=== PATIENT | female | born 1950 | race African-American/Black ===

== ENCOUNTER 2018-05-31 10:00 | Inpatient (IN) | payer MEDICARE, MEDICAID ==
[~2018-05-31] VITALS: Ht 177.8 cm; Wt 162.8 kg
[2018-05-31 10:30] VITALS: BP 139/82
[2018-05-31] MEDS ORDERED: Morphine Sulfate 4mg/ml Inj (IV USE ONLY) IVP ONE ×2 (10:30→12:15)
[2018-05-31] MEDS ORDERED: NAMENDA10 MG ORAL (10:40)
[2018-05-31] MEDS ORDERED: PRILOSEC OTC20 MG ORAL (10:40)
[2018-05-31] MEDS ORDERED: SEROQUEL100 MG ORAL (10:42)
[2018-05-31] MEDS ORDERED: UNOBMED (10:42)
[2018-05-31] MEDS ORDERED: ATORVASTATIN CA10 MG ORAL (10:42)
[2018-05-31] MEDS ORDERED: LOPRESSOR HCT1 EAC3 ORAL (10:42)
--- NOTE | 2018-05-31 10:42 | Emergency Room Report ---
History of Present Illness General Chief Complaint: Pain Source: Patient, EMS Present Illness HPI 68-year-old female with history of hypertension, diabetes, frequent UTIs currently on antibiotics, Keflex, reports that she is having dysuria and 1 week history of bilateral lower extremity redness, constant, throbbing, severe pain and associated bilateral lower extremity swelling. She reports she ambulance with a walker but recently has been having increasing difficulty ambulating. Pain, fevers, vomiting, pain complaints anywhere else, shortness of breath, syncope, hemoptysis, cough. Allergies: Coded Allergies: No Known Allergies (Unverified , 05/31/18) Patient History Past Medical History: see triage record Reviewed Nursing Documentation: PMH: Agreed; PSxH: Agreed Nursing Documentation-PMH Past Medical History: No History, Except For Hx Hypertension: Yes Hx Diabetes: Yes Review of Systems All Other Systems: negative except mentioned in HPI Physical Exam Vital Signs Date Time Temp Pulse Resp B/P (MAP) Pulse Ox O2 Delivery O2 Flow Rate FiO2 05/31/18 09:55 97.7 87 18 139/82 95 Room Air 97.7 Sp02 EP Interpretation: reviewed, normal General Appearance: no apparent distress, alert, non-toxic Head: normocephalic Eyes: bilateral eye normal inspection, bilateral eye PERRL, bilateral eye EOMI ENT: normal ENT inspection, hearing grossly normal, normal pharynx, no angioedema, normal voice, moist mucus membranes Neck: normal inspection, full range of motion, supple, supple/symm/no masses Respiratory: chest non-tender, lungs clear, normal breath sounds, chest symmetrical, palpation of chest normal Cardiovascular #1: normal peripheral pulses, regular rate, rhythm, edema Cardiovascular #2: 2+ radial (R), 2+ radial (L) Gastrointestinal: normal inspection, non tender, soft, no mass, no guarding, no rebound Rectal: deferred Genitourinary: normal inspection, no CVA tenderness Musculoskeletal: back normal, gait/station normal, normal range of motion, non- tender, no calf tenderness, swelling Neurologic: alert, responsive, [employer] department supervisor III-XII nml as tested, motor strength/tone normal, sensory intact, speech normal Psychiatric: judgement/insight normal, memory normal, mood/affect normal, no suicidal/homicidal ideation Skin: normal color, no rash, warm/dry, normal turgor, other - + erythema, warmth, tenderness bilateral LE distal tibias circumferentially to level of knees Lymphatic: no adenopathy Medical Decision Making Diagnostic Impression: Primary Impression: Cellulitis Additional Impressions: Edema Hyperglycemia UTI (urinary tract infection) ER Course Elderly diabetic female with one-week history of signs and symptoms consistent with diagnosis of cellulitis, given IV vancomycin, Lasix, will have urinalysis checked from catheterized specimen as she reports having multiple UTIs since the last 2 months and is currently on Keflex, still having dysuria.she will need admission for her cellulitis and edema that has contributed to her difficulty ambulating, and will need further diuresis and abx. She is hyperglycemic with a glucose of 444, no evidence of DKA, hyperglycemia in the setting of infection and insulin dependence, given IV insulin. She carries no diagnosis of CHF, liver disease or kidney disease, so will need further evaluation for her new onset edema as well. Given rocephin for UTI found on UA. EKG Diagnostic Results EKG Time: 10:53 EP Interpretation: No ST-T segment changes, no T-wave inversions Rate: normal Rhythm: NSR ST Segments: no acute changes Rhythm Strip Diag. Results Rhythm Strip Time: 11:05 EP Interpretation: yes Rate: 94 Rhythm: NSR, no PVC's, no ectopy Chest X-Ray Diagnostic Results Chest X-Ray Diagnostic Results : Chest X-Ray Ordered: Yes # of Views/Limited/Complete: 1 View Indication: Other EP Interpretation: Yes Interpretation: no consolidation, no effusion, no pneumothorax, no acute cardiopulmonary disease Impression: No acute disease Electronically Signed by: Audra Roman MD Last Vital Signs Date Time Temp Pulse Resp B/P (MAP) Pulse Ox O2 Delivery O2 Flow Rate FiO2 05/31/18 10:30 97.7 18 139/82 95 Room Air 97.7 05/31/18 09:55 87 Disposition: ADMITTED INPATIENT Referrals: NOT CHOSEN LESLI/,REFERRING (PCP) AUDRA ROMAN M.D May 31, 2018 10:42
[2018-05-31 10:43] LABS: BASOPHILS % (AUTO) 0.6 % (0.0-2.0); EOSINOPHILS % (AUTO) 1.8 % (0.0-3.0); HEMATOCRIT 36.9 % (37.0-47.0); LYMPHOCYTES % (AUTO) 20.9 % (20.0-45.0); MEAN CORPUSCULAR VOLUME 84 FL (80-99); MONOCYTES % (AUTO) 5.1 % (1.0-10.0); NEUTROPHILS % (AUTO) 71.6 % (45.0-75.0); PLATELET COUNT 203 K/UL (150-450); RED BLOOD COUNT 4.37 M/UL (4.20-5.40); RED CELL DISTRIBUTION WIDTH 13.6 % (11.6-14.8); WHITE BLOOD COUNT 6.9 K/UL (4.8-10.8)
[2018-05-31 10:51] LABS: ANION GAP 8 mmol/L (5-15); BLOOD UREA NITROGEN 17 mg/dL (7-18); CALCIUM 9.1 MG/DL (8.5-10.1); CARBON DIOXIDE 31 MMOL/L (21-32); CHLORIDE 98 MMOL/L (98-107); CREATININE 1.2 MG/DL (0.55-1.30); POTASSIUM 3.7 MMOL/L (3.5-5.1); SODIUM 137 MMOL/L (136-145)
[2018-05-31 11:04] LABS: ALANINE AMINOTRANSFERASE 17 U/L (12-78); ALBUMIN 3.1 G/DL (3.4-5.0); ALBUMIN/GLOBULIN RATIO 0.7 (1.0-2.7); ALKALINE PHOSPHATASE 160 U/L (46-116); ASPARTATE AMINO TRANSFERASE 14 U/L (15-37); BILIRUBIN,TOTAL 0.5 MG/DL (0.2-1.0)
[2018-05-31 11:07] LABS: APPEARANCE,URINE CLOUDY; BILIRUBIN, URINE NEGATIVE (NEGATIVE); COLOR,URINE PALE YELLOW; GLUCOSE, URINE (UA) 4+ (NEGATIVE); KETONES,URINE NEGATIVE (NEGATIVE); LEUKOCYTE ESTERASE ,URINE 3+ (NEGATIVE); NITRITE,URINE POSITIVE (NEGATIVE); PH,URINE 6 (4.5-8.0); PROTEIN,URINE 3+ (NEGATIVE); UROBILINOGEN,URINE NORMAL MG/DL (0.0-1.0)
[2018-05-31] MEDS ORDERED: Insulin Human Regular 100units/ml 3ml IV ONE (11:15)
[2018-05-31] MEDS ORDERED: Cyclobenzaprine 10mg Tab ORAL ONE (12:15)
[2018-05-31] MEDS ORDERED: cefTRIAXone 1 GM in NS 55 ML IVPB ONE (12:15)
--- NOTE | 2018-05-31 12:15 | Diagnostic Imaging Report ---
EXAM: XR Chest, 1 View CLINICAL HISTORY: HTN TECHNIQUE: Frontal view of the chest. COMPARISON: No relevant prior studies available. FINDINGS: Lungs: Mild pulmonary vascular congestion. The lungs are otherwise clear without focal consolidation. Pleural space: Unremarkable. No pneumothorax. Heart: Heart appears enlarged, however the cardiac silhouette is magnified by AP film technique. Mediastinum: Unremarkable. Bones/joints: Mild degenerative changes throughout the visualized spine. IMPRESSION: 1. Mild pulmonary vascular congestion. 2. Heart appears enlarged, however the cardiac silhouette is magnified by AP film technique.
[2018-05-31] MEDS ORDERED: Milk of Magnesia 30ml Ud ORAL PRN (14:00)
--- NOTE | 2018-05-31 14:04 | History & Physical ---
History and Physical History & Physicial HP dictated #[id number] Beau Meneses MD May 31, 2018 14:04
[2018-05-31] MEDS ORDERED: cefTRIAXone 1 GM in D5W 55 ML IVPB SCH (15:00)
--- NOTE | 2018-05-31 15:30 | History and Physical Report ---
DATE OF ADMISSION: 05/31/2018 CHIEF COMPLAINT: Edema of the legs and pain. HISTORY OF PRESENT ILLNESS: This is a 68-year-old female, who just moved to a new place and for the past week she has been getting more and more peripheral edema. She stated that her legs have become painful. She was seen in the emergency room and was diagnosed with cellulitis of the lower extremities. In addition, she has had frequent UTIs before. She is diabetic. PAST MEDICAL HISTORY: The patient has a history of , history of hypertension, and diabetes for many years. ALLERGIES: No known drug allergies. SOCIAL HISTORY: No history of smoking or alcohol abuse. REVIEW OF SYSTEMS: Noncontributory except above. PHYSICAL EXAMINATION: GENERAL: The patient is a 68-year-old female, in no acute distress. VITAL SIGNS: Blood pressure 139/82, pulse 87, and temperature 97.7. HEENT: [place] conjunctivae. Anicteric sclerae. NECK: Supple. LUNGS: Clear to auscultation. HEART: S1, S2 without murmurs or rubs. ABDOMEN: Soft, nontender. EXTREMITIES: Bilateral pedal edema with redness of both lower extremities. LABORATORY FINDINGS: The CBC shows a WBC of 6900, hematocrit is 36.9, hemoglobin 12, and platelets 203,000. The chemistry panel shows a serum sodium of 137, potassium 3.7, chloride 98, CO2 31, BUN is 17, creatinine 1.2, glucose 444, and calcium is 9.1. Albumin is 3.1. UA shows 3+ protein, with too numerous to count rbc's and too numerous to count wbc's per high-power field and moderate bacteria. ASSESSMENT: This is a 68-year-old female, was admitted with UTI and lower extremity cellulitis. She has history of diabetes and we put a Shane and she had a lot of urine residuals in the bladder. So, she very likely has a neurogenic bladder from diabetes also triggering her frequent UTIs. Her blood sugar was also not controlled. PLAN: The patient will be on IV antibiotics both for UTI as well as cellulitis. ID consultation will be obtained. The patient will be diuresed with Lasix for lower extremity swelling. The patient will be on Urecholine for neurogenic bladder, also endocrine consult for her diabetes, and she will be on sliding scale insulin at this time. Thank you very much. Beau Meneses M.D. DR: JOSE MARTIN JOB#: [id number] CC:
[2018-05-31] MEDS ORDERED: Vancomycin 1500mg IVPB SCH (16:00)
[2018-05-31] MEDS: NovoLOG Insulin Flexpen SUBQ SCH ×2 (16:26→20:39)
[2018-05-31] MEDS: Heparin 5000 units/ml inj SUBQ SCH ×2 (16:28→20:38)
[2018-05-31] MEDS: Memantine 10mg tab ORAL SCH (16:30)
[2018-05-31] MEDS: Bethanechol 10mg Tab ORAL SCH (18:18)
[2018-05-31 20:00] VITALS: BP 149/75
[2018-05-31 21:00] VITALS: BP 149/75
[2018-06-01] VITALS (7 sets, daily range): BP systolic 131–151; BP diastolic 72–85
[2018-06-01] MEDS: Vancomycin 1250mg/D5W 250ml IVPB SCH ×2 (04:00→17:16)
[2018-06-01] MEDS: Morphine Sulfate 4mg/ml Inj (IV USE ONLY) IVP PRN ×2 (04:01→09:22)
[2018-06-01] MEDS: NovoLOG Insulin Flexpen SUBQ SCH ×4 (05:56→20:24)
[2018-06-01 08:06] LABS: ANION GAP 8 mmol/L (5-15); BLOOD UREA NITROGEN 16 mg/dL (7-18); CALCIUM 8.6 MG/DL (8.5-10.1); CARBON DIOXIDE 33 MMOL/L (21-32); CHLORIDE 99 MMOL/L (98-107); POTASSIUM 2.9 MMOL/L (3.5-5.1); SODIUM 140 MMOL/L (136-145)
[2018-06-01] MEDS: cefTRIAXone 1 GM in D5W 55 ML IVPB SCH (08:49)
[2018-06-01] MEDS: Bethanechol 10mg Tab ORAL SCH ×3 (08:49→17:15)
[2018-06-01] MEDS: Memantine 10mg tab ORAL SCH (08:49)
[2018-06-01] MEDS: Heparin 5000 units/ml inj SUBQ SCH ×2 (08:50→20:23)
--- NOTE | 2018-06-01 10:56 | General Progress Note ---
Assessment/Plan Problem List: (1) Cellulitis ICD Codes: L03.90 - Cellulitis, unspecified SNOMED: 839605225 (2) UTI (urinary tract infection) ICD Codes: N39.0 - Urinary tract infection, site not specified SNOMED: 69051206 (3) Edema ICD Codes: R60.9 - Edema, unspecified SNOMED: 708750935, 453939113 (4) Hyperglycemia ICD Codes: R73.9 - Hyperglycemia, unspecified SNOMED: 50979945 (5) Hypokalemia ICD Codes: E87.6 - Hypokalemia SNOMED: 60407641 Assessment/Plan Replete K abxs diuretics follow BMP Subjective Allergies: Coded Allergies: No Known Allergies (Unverified , 05/31/18) Subjective feels better Objective Last 24 Hour Vital Signs Date Time Temp Pulse Resp B/P (MAP) Pulse Ox O2 Delivery O2 Flow Rate FiO2 06/01/18 08:00 98.2 97 20 147/85 (105) 95 98.2 06/01/18 04:31 98.0 06/01/18 04:01 98.0 06/01/18 04:00 98.1 98 21 151/79 (103) 94 98.1 06/01/18 00:00 98.0 97 20 146/72 (96) 94 98.0 05/31/18 21:20 Room Air 05/31/18 21:00 98.2 103 20 149/75 (99) 95 98.2 05/31/18 20:00 98.2 103 20 149/75 (99) 95 98.2 05/31/18 16:42 Room Air 05/31/18 15:01 98.0 16 137/82 97 Room Air 05/31/18 13:40 97.7 05/31/18 13:40 97.7 05/31/18 13:39 97.7 05/31/18 12:25 97.7 05/31/18 12:25 97.7 Intake and Output 05/31/18 06/01/18 19:00 07:00 Intake Total 0 ml 250.000 ml Output Total 1350 ml 1700 ml Balance -1350 ml -1450.000 ml Intake Oral 0 ml IV Total 250.000 ml Output Urine Total 1350 ml 1700 ml Laboratory Tests 05/31/18 12:35: Lactic Acid Level 3.50H 06/01/18 05:10: Sodium Level 140, Potassium Level 2.9L, Chloride Level 99, Carbon Dioxide Level 33H, Anion Gap 8, Blood Urea Nitrogen 16, Creatinine 1.0, Estimat Glomerular Filtration Rate > 60, Glucose Level 341#H, Hemoglobin A1c 9.4H, Calcium Level 8.6, Thyroid Stimulating Hormone (TSH) 1.487 Height (Feet): 5 Height (Inches): 10.00 Weight (Pounds): 359 Cardiovascular: normal rate Respiratory/Chest: lungs clear Edema: 4+ Generalized Beau Meneses MD Jun 01, 2018 10:56
[2018-06-01] MEDS: Zolpidem 5mg tab ORAL PRN (20:22)
--- NOTE | 2018-06-01 21:00 | Consultation ---
DATE OF CONSULTATION: 06/01/2018 INFECTIOUS DISEASE CONSULTATION CONSULTING PHYSICIAN: Ti Meneses M.D. PRIMARY ATTENDING PHYSICIAN: Beau Meneses M.D. REASON FOR CONSULT: UTI and lower extremity cellulitis. HISTORY OF PRESENT ILLNESS: This is a 68-year-old female admitted yesterday complaining of swelling and pain in the lower extremities. The patient states that she moved to someplace that bedroom is upstairs, it is difficulty for her to go there. So, she stays mostly in sitting position in lower level, developed swelling of the legs and pain in the legs. The patient also complains of dysuria. She had recurrent urinary infections and getting antibiotics on and off since August of last year. Before admission, she was on Keflex at home. ALLERGIES: No known drug allergy. MEDICATIONS: Ceftriaxone, vancomycin, Tylenol, atorvastatin, memantine, milk of magnesia, morphine, potassium chloride, Seroquel. PAST MEDICAL HISTORY: Diabetes mellitus for many years in the past 10 years was on insulin; hypertension; and morbid obesity. REVIEW OF SYSTEMS: No fever. No chills. No nausea. No vomiting. No diarrhea. No coughing. No chest pain. No change in the lesion. She has dysuria. After admission, she had Shane catheter. Swelling of the legs. PHYSICAL EXAMINATION: VITAL SIGNS: Temperature 98.2, pulse 97, and blood pressure 147/85. GENERAL APPEARANCE: No acute distress, morbidly obese. BMI is 61.5. HEAD AND NECK: [place] conjunctivae. HEART: Normal rate. LUNGS: Clear. ABDOMEN: Soft and nontender. EXTREMITIES: She has lower extremity edema. SKIN: She has some skin ulceration in female area. LABORATORY AND IMAGING DATA: UA is positive for nitrite, WBC too numerous to count, RBC too numerous to count. Sodium 140, potassium 2.9, chloride 99, bicarbonate 33, BUN 16, creatinine 1, and glucose 341. Lactic acid is 3.5. Hemoglobin A1c 9.4. Chest x-ray showed some congestion. Heart appeared enlarged. IMPRESSION: 1. Pyuria and urinary tract infection. The patient also has dysuria and have to press down for urination. 2. Bilateral lower extremity pain and swelling. May have cellulitis especially in perineal area. 3. Diabetes mellitus with hyperglycemia. 4. Lactic acidosis. 5. Morbid obesity. 6. Hypertension. RECOMMENDATION: We will continue with Rocephin and vancomycin. We will follow up the cultures. At the end of my exam, I thank Dr. Beau Meneses for involving me in the care of this patient. Ti Meneses M.D. DR: NYDIA JOB#: [id number] CC:
[2018-06-02] VITALS: BP 123/57
[2018-06-02 04:00] VITALS: BP 154/78
[2018-06-02 05:00] LABS: ANION GAP 6 mmol/L (5-15); BLOOD UREA NITROGEN 11 mg/dL (7-18); CALCIUM 8.2 MG/DL (8.5-10.1); CARBON DIOXIDE 34 MMOL/L (21-32); CHLORIDE 100 MMOL/L (98-107); CREATININE 0.9 MG/DL (0.55-1.30); POTASSIUM 3.4 MMOL/L (3.5-5.1); SODIUM 139 MMOL/L (136-145)
[2018-06-02] MEDS: Vancomycin 1.5gm/D5W 250ml 250 ML IVPB SCH ×2 (05:43→18:07)
[2018-06-02] MEDS: NovoLOG Insulin Flexpen SUBQ SCH ×4 (05:45→21:24)
[2018-06-02 08:00] VITALS: BP 144/79
[2018-06-02] MEDS: Bethanechol 10mg Tab ORAL SCH ×3 (08:34→18:00)
[2018-06-02] MEDS: Memantine 10mg tab ORAL SCH (08:35)
[2018-06-02] MEDS: cefTRIAXone 1 GM in D5W 55 ML IVPB SCH (08:35)
[2018-06-02] MEDS: Morphine Sulfate 4mg/ml Inj (IV USE ONLY) IVP PRN ×2 (08:35→22:59)
[2018-06-02] MEDS: Heparin 5000 units/ml inj SUBQ SCH ×2 (09:00→21:14)
--- NOTE | 2018-06-02 10:37 | Infectious Diseases Prog Note ---
Assessment/Plan Assessment/Plan A; E. coli UTI Bilateral leg edema Uncontrolled DM Tachycardia Morbid obesity P: Continue Rocephin & Vancomycin Will f/u cultures Patient was on Lopressor at home Case was D/W RN Subjective ROS Limited/Unobtainable: No Constitutional: Reports: no symptoms, other - feels better HEENT: Reports: no symptoms Respiratory: Reports: no symptoms Cardiovascular: Reports: no symptoms Gastrointestinal/Abdominal: Reports: no symptoms Genitourinary: Reports: no symptoms Allergies: Coded Allergies: No Known Allergies (Unverified , 05/31/18) Objective Vital Signs Last 24 Hour Vital Signs Date Time Temp Pulse Resp B/P (MAP) Pulse Ox O2 Delivery O2 Flow Rate FiO2 06/02/18 08:00 98.1 109 20 144/79 (100) 94 98.1 06/02/18 04:00 97.9 104 20 154/78 (103) 95 97.9 06/02/18 00:00 98.1 105 20 123/57 (79) 100 98.1 06/01/18 21:12 Room Air 06/01/18 20:00 98.8 107 20 131/75 (93) 96 98.8 06/01/18 16:00 98.2 98 20 142/82 (102) 96 98.2 06/01/18 12:00 98.1 101 19 140/78 (98) 95 98.1 Height (Feet): 5 Height (Inches): 10.00 Weight (Pounds): 359 HEENT: mucous membranes moist Respiratory/Chest: lungs clear Cardiovascular: tachycardia Abdomen: soft, non tender Extremities: other - edema of legs Neurologic/Psychiatric: alert, oriented x 3, responsive Microbiology Date/Time Source Procedure Growth Status 05/31/18 10:50 Urine,Clean Catch Urine Culture - Preliminary Escherichia Coli Resulted Laboratory Tests Test 06/02/18 03:40 Sodium Level 139 MMOL/L (136-145) Potassium Level 3.4 MMOL/L (3.5-5.1) L Chloride Level 100 MMOL/L (98-107) Carbon Dioxide Level 34 MMOL/L (21-32) H Anion Gap 6 mmol/L (5-15) Blood Urea Nitrogen 11 mg/dL (7-18) Creatinine 0.9 MG/DL (0.55-1.30) Estimat Glomerular Filtration Rate > 60 mL/min (>60) Glucose Level 335 MG/DL (74-106) H Calcium Level 8.2 MG/DL (8.5-10.1) L Vancomycin Level Trough 11.4 ug/mL (5.0-12.0) Current Medications Medications (Trade) Dose Ordered Sig/Consuelo Route PRN Reason Start Time Stop Time Status Last Admin Dose Admin Acetaminophen (Tylenol) 650 mg Q4H PRN ORAL Mild Pain (Pain Scale 1-3) 05/31/18 14:00 06/30/18 13:59 Atorvastatin Calcium (Lipitor) 10 mg BEDTIME ORAL 05/31/18 21:00 06/30/18 20:59 06/01/18 20:22 Bethanechol Chloride (Urecholine) 10 mg THREE TIMES A DAY ORAL 05/31/18 18:00 06/30/18 17:59 06/02/18 08:34 Bisacodyl (Dulcolax) 10 mg HSPRN PRN RECTAL Constipation 05/31/18 14:00 06/30/18 13:59 Ceftriaxone Sodium 1 gm/ Dextrose 55 ml @ 110 mls/hr DAILY IVPB 06/01/18 09:00 06/08/18 08:59 06/02/18 08:35 Dextrose (Dextrose 50%) 25 ml STAT PRN IV Hypoglycemia 05/31/18 14:00 06/30/18 13:59 Dextrose (Dextrose 50%) 50 ml STAT PRN IV Hypoglycemia 05/31/18 14:00 06/30/18 13:59 Furosemide (Lasix) 20 mg EVERY 12 HOURS IV 05/31/18 15:00 06/30/18 14:59 06/02/18 08:35 Heparin Sodium (Porcine) (Heparin 5000 units/ml) 5,000 units EVERY 12 HOURS SUBQ 05/31/18 15:00 06/30/18 14:59 06/01/18 20:23 Insulin Aspart (NovoLOG) BEFORE MEALS AND HS SUBQ 05/31/18 16:30 06/30/18 16:29 06/02/18 05:45 Magnesium Hydroxide (Mom) 30 ml HSPRN PRN ORAL Constipation 05/31/18 14:00 06/30/18 13:59 Memantine (Namenda) 10 mg DAILY ORAL 05/31/18 15:00 06/30/18 14:59 06/02/18 08:35 Morphine Sulfate (Morphine Sulfate) 4 mg Q3H PRN IVP Severe Pain (Pain Scale 7-10) 05/31/18 14:00 06/07/18 13:59 06/02/18 08:35 Potassium Chloride (K-Dur) 40 meq TWICE A DAY ORAL 06/01/18 18:00 07/01/18 17:59 06/02/18 08:34 Quetiapine Fumarate (SEROquel) 150 mg DAILY ORAL 05/31/18 15:00 06/30/18 14:59 06/02/18 08:35 Vancomycin HCl (Vanco rx to dose) 1 ea DAILY PRN MISC Per rx protocol 05/31/18 14:00 06/30/18 13:59 Vancomycin HCl/ Dextrose 250 ml @ 125 mls/hr Q12H IVPB 06/02/18 06:00 06/07/18 05:59 06/02/18 05:43 Zolpidem Tartrate (Ambien) 5 mg HSPRN PRN ORAL Insomnia 05/31/18 14:00 06/07/18 13:59 06/01/18 20:22 Ti Meneses MD Jun 02, 2018 10:37
[2018-06-02 12:00] VITALS: BP 160/78
--- NOTE | 2018-06-02 12:39 | General Progress Note ---
Assessment/Plan Problem List: (1) Cellulitis ICD Codes: L03.90 - Cellulitis, unspecified SNOMED: 500448003 (2) UTI (urinary tract infection) ICD Codes: N39.0 - Urinary tract infection, site not specified SNOMED: 78692128 (3) Edema ICD Codes: R60.9 - Edema, unspecified SNOMED: 054900499, 948733998 (4) Hyperglycemia ICD Codes: R73.9 - Hyperglycemia, unspecified SNOMED: 10212278 (5) Hypokalemia ICD Codes: E87.6 - Hypokalemia SNOMED: 18498482 Assessment/Plan Replete K abxs diuretics follow BMP Subjective Allergies: Coded Allergies: No Known Allergies (Unverified , 05/31/18) Subjective feels better Objective Last 24 Hour Vital Signs Date Time Temp Pulse Resp B/P (MAP) Pulse Ox O2 Delivery O2 Flow Rate FiO2 06/02/18 12:00 98.1 104 20 160/78 (105) 95 98.1 06/02/18 08:00 98.1 109 20 144/79 (100) 94 98.1 06/02/18 04:00 97.9 104 20 154/78 (103) 95 97.9 06/02/18 00:00 98.1 105 20 123/57 (79) 100 98.1 06/01/18 21:12 Room Air 06/01/18 20:00 98.8 107 20 131/75 (93) 96 98.8 06/01/18 16:00 98.2 98 20 142/82 (102) 96 98.2 Intake and Output 06/01/18 06/02/18 19:00 07:00 Intake Total 360 ml 245 ml Output Total 550 ml 350 ml Balance -190 ml -105 ml Intake Oral 120 ml IV Total 360 ml 125 ml Output Urine Total 550 ml 350 ml Laboratory Tests 06/02/18 03:40: Sodium Level 139, Potassium Level 3.4L, Chloride Level 100, Carbon Dioxide Level 34H, Anion Gap 6, Blood Urea Nitrogen 11, Creatinine 0.9, Estimat Glomerular Filtration Rate > 60, Glucose Level 335H, Calcium Level 8.2L, Vancomycin Level Trough 11.4 Height (Feet): 5 Height (Inches): 10.00 Weight (Pounds): 359 Cardiovascular: normal rate Respiratory/Chest: lungs clear Edema: 4+ Generalized Beau Meneses MD Jun 02, 2018 12:39
[2018-06-02] MEDS: Irbesartan 150mg tablet ORAL SCH (12:43)
[2018-06-02 16:00] VITALS: BP 144/75
[2018-06-02] MEDS: Metoprolol Tartrate 50mg tab ORAL SCH (16:06)
[2018-06-02 20:00] VITALS: BP 138/77
[2018-06-02] MEDS: Levemir Flexpen SUBQ SCH ×2 (22:08→22:17)
[2018-06-02] MEDS: Zolpidem 5mg tab ORAL PRN (22:16)
[2018-06-03] MEDS: Vancomycin 1.5gm/D5W 250ml 250 ML IVPB SCH (06:38)
[2018-06-03] MEDS: NovoLOG Insulin Flexpen SUBQ SCH ×3 (06:39→16:50)
[2018-06-03 08:33] VITALS: BP 149/86
[2018-06-03] MEDS: Morphine Sulfate 4mg/ml Inj (IV USE ONLY) IVP PRN (08:37)
[2018-06-03] MEDS: Irbesartan 150mg tablet ORAL SCH (08:45)
[2018-06-03] MEDS: Bethanechol 10mg Tab ORAL SCH ×3 (08:45→18:00)
[2018-06-03] MEDS: Metoprolol Tartrate 50mg tab ORAL SCH (08:45)
[2018-06-03] MEDS: Memantine 10mg tab ORAL SCH (08:45)
[2018-06-03] MEDS: Heparin 5000 units/ml inj SUBQ SCH (08:47)
[2018-06-03] MEDS: cefTRIAXone 1 GM in D5W 55 ML IVPB SCH (08:48)
[2018-06-03 11:39] VITALS: BP 133/77
--- NOTE | 2018-06-03 12:14 | Infectious Diseases Prog Note ---
Assessment/Plan Assessment/Plan A; E. coli UTI Bilateral leg edema Uncontrolled DM Morbid obesity P: discontinue Rocephin & Vancomycin Start on Levaquin Subjective ROS Limited/Unobtainable: No Constitutional: Reports: no symptoms Cardiovascular: Reports: no symptoms Gastrointestinal/Abdominal: Reports: no symptoms Genitourinary: Reports: no symptoms Allergies: Coded Allergies: No Known Allergies (Unverified , 05/31/18) Objective Vital Signs Last 24 Hour Vital Signs Date Time Temp Pulse Resp B/P (MAP) Pulse Ox O2 Delivery O2 Flow Rate FiO2 06/03/18 11:39 97.5 85 20 133/77 (95) 95 97.5 06/03/18 09:00 Room Air 06/03/18 08:45 149/86 06/03/18 08:45 94 149/86 06/03/18 08:33 98.4 94 20 149/86 (107) 95 98.4 06/02/18 21:00 Room Air 06/02/18 20:00 98.2 98 20 138/77 (97) 92 98.2 06/02/18 16:06 104 160/78 06/02/18 16:00 97.9 105 20 144/75 (98) 99 97.9 Height (Feet): 5 Height (Inches): 10.00 Weight (Pounds): 359 General Appearance: no acute distress HEENT: mucous membranes moist Respiratory/Chest: lungs clear Cardiovascular: normal rate Abdomen: soft, non tender Genitourinary: other - Shane catheter Extremities: other - edema of legs Neurologic/Psychiatric: alert, oriented x 3, responsive Laboratory Tests Test 06/03/18 05:05 Vancomycin Level Trough 15.5 ug/mL (5.0-12.0) H Current Medications Medications (Trade) Dose Ordered Sig/Consuelo Route PRN Reason Start Time Stop Time Status Last Admin Dose Admin Acetaminophen (Tylenol) 650 mg Q4H PRN ORAL Mild Pain (Pain Scale 1-3) 05/31/18 14:00 06/30/18 13:59 Atorvastatin Calcium (Lipitor) 10 mg BEDTIME ORAL 05/31/18 21:00 06/30/18 20:59 06/02/18 21:13 Bethanechol Chloride (Urecholine) 10 mg THREE TIMES A DAY ORAL 05/31/18 18:00 06/30/18 17:59 06/03/18 08:45 Bisacodyl (Dulcolax) 10 mg HSPRN PRN RECTAL Constipation 05/31/18 14:00 06/30/18 13:59 Ceftriaxone Sodium 1 gm/ Dextrose 55 ml @ 110 mls/hr DAILY IVPB 06/01/18 09:00 06/08/18 08:59 06/03/18 08:48 Dextrose (Dextrose 50%) 25 ml STAT PRN IV Hypoglycemia 05/31/18 14:00 06/30/18 13:59 Dextrose (Dextrose 50%) 50 ml STAT PRN IV Hypoglycemia 05/31/18 14:00 06/30/18 13:59 Furosemide (Lasix) 20 mg EVERY 12 HOURS IV 05/31/18 15:00 06/30/18 14:59 06/03/18 08:46 Heparin Sodium (Porcine) (Heparin 5000 units/ml) 5,000 units EVERY 12 HOURS SUBQ 05/31/18 15:00 06/30/18 14:59 06/03/18 08:47 Insulin Aspart (NovoLOG) BEFORE MEALS AND HS SUBQ 05/31/18 16:30 06/30/18 16:29 06/03/18 11:45 Insulin Detemir (Levemir) 50 units BEDTIME SUBQ 06/03/18 21:41 07/03/18 21:40 06/02/18 22:17 Irbesartan (Avapro) 150 mg DAILY ORAL 06/02/18 12:43 07/02/18 12:42 06/03/18 08:45 Magnesium Hydroxide (Mom) 30 ml HSPRN PRN ORAL Constipation 05/31/18 14:00 06/30/18 13:59 Memantine (Namenda) 10 mg DAILY ORAL 05/31/18 15:00 06/30/18 14:59 06/03/18 08:45 Metoprolol Tartrate (Lopressor) 50 mg DAILY ORAL 06/02/18 12:42 07/02/18 12:41 06/03/18 08:45 Morphine Sulfate (Morphine Sulfate) 4 mg Q3H PRN IVP Severe Pain (Pain Scale 7-10) 05/31/18 14:00 06/07/18 13:59 06/03/18 08:37 Potassium Chloride (K-Dur) 40 meq TWICE A DAY ORAL 06/01/18 18:00 9/18/18 17:59 06/03/18 08:45 Quetiapine Fumarate (SEROquel) 150 mg DAILY ORAL 05/31/18 15:00 06/30/18 14:59 06/03/18 08:45 Vancomycin HCl (Vanco rx to dose) 1 ea DAILY PRN MISC Per rx protocol 05/31/18 14:00 06/30/18 13:59 Vancomycin HCl/ Dextrose 250 ml @ 125 mls/hr Q12H IVPB 06/02/18 06:00 06/07/18 05:59 06/03/18 06:38 Zolpidem Tartrate (Ambien) 5 mg HSPRN PRN ORAL Insomnia 05/31/18 14:00 06/07/18 13:59 06/02/18 22:16 Ti Meneses MD Jun 03, 2018 12:14
[2018-06-03] MEDS ORDERED: ACETAMINOPHEN325 M1 ORAL (13:07)
[2018-06-03] MEDS ORDERED: LIPITOR10 MG ORAL (13:07)
[2018-06-03] MEDS ORDERED: URECHOLINE10 MG ORAL (13:08)
[2018-06-03] MEDS ORDERED: BISAC-EVAC10 MG RC (13:09)
[2018-06-03] MEDS ORDERED: FUROSEMIDE10 MG/1 M2 PO (13:12)
[2018-06-03] MEDS ORDERED: FUROSEMIDE20 MG IV (13:12)
[2018-06-03] MEDS ORDERED: HEPARIN SO5000 UNIT2 SUBQ (13:13)
[2018-06-03] MEDS ORDERED: NOVOLOG100 UNIT/4 SQ (13:14)
[2018-06-03] MEDS ORDERED: AVAPRO150 MG ORAL (13:15)
[2018-06-03] MEDS ORDERED: LEVEMIR FL100 UNIT/1 SUBQ (13:15)
[2018-06-03] MEDS ORDERED: LEVAQUIN750 MG ORAL (13:16)
[2018-06-03] MEDS ORDERED: MOM30 ML ORAL (13:17)
[2018-06-03] MEDS ORDERED: METOPROLOL TART50 M1 ORAL (13:18)
[2018-06-03] MEDS ORDERED: MORPHINE SU4 MG/1 ML IVP (13:18)
[2018-06-03] MEDS ORDERED: POTASSIUM CHLO10 MEQ ORAL (13:19)
[2018-06-03] MEDS ORDERED: AMBIEN5 MG ORAL (13:19)
[2018-06-03 16:05] VITALS: BP 141/84
--- NOTE | 2018-06-05 13:48 | Discharge Summary ---
Discharge Summary Discharge Summary _ DATE OF ADMISSION: 05/31/2018 DATE OF DISCHARGE: 06/03/2018 REASON FOR ADMISSION: 68 years old -[place]i female with past medical history of diabetes, hypertension , morbid obesity , presented to emergency room with increased peripheral edema. She reported worsening swelling and pain in bilateral lower extremity. Physical examination was consistent with cellulitis of bilateral lower extremities. Laboratory workup revealed no leukocytosis, stable hemoglobin and hematocrit. Lactic acid 2.1. Troponin negative. Blood glucose 444. Anion gap and bicarbonate within normal limits. Stable renal parameters and electrolytes. Urinalysis was consistent with UTI. EKG revealed normal sinus rhythm, no acute ischemic changes. Patient admitted with diagnoses of peripheral edema, cellulitis bilateral lower extremity, UTI , hyperglycemia due to diabetes CONSULTANTS: ID specialist Dr. Cross [facility] COURSE: Patient admitted. Patient started on empiric antibiotics. ID consult was requested. Urine culture revealed Escherichia coli ESBL. Patient was on IV antibiotic , which changed to oral upon discharge to complete the course as per ID consult recommendations. Renal parameters and electrolytes were closely monitored. Electrolytes, particularly potassium, replaced. Nephrotoxins were avoided. Patient was diuresed with furosemide. Cardiorenal parameters and volumes were closely monitored, and remain stable. Blood sugar was managed with long-acting Levemir and sliding scale insulin as needed. Hemoglobin A1c -9.4 , not at goal. Patient needs further optimization of anti- glycemic regimen as outpatient. Blood pressure was managed with angiotensin receptor wilfredo and beta wilfredo , and remained stable. Statin was continued. Shane catheter initially was placed with return of significant amount of residual urine in the bladder. Patient likely had neurogenic bladder , secondary to diabetes mellitus, which triggered frequent urinary tract infection. Patient started on Urecholine. Pain management was addressed. Supportive care provided. Bowel regimen instituted. Patient clinically improved and was stable for discharge back to long term facility FINAL DIAGNOSES: Cellulitis bilateral lower extremity Escherichia coli ESBL UTI Diabetes mellitus out of control Bilateral lower extremity edema Morbid obesity Hypokalemia Probably neurogenic bladder DISCHARGE MEDICATIONS: See Medication Reconciliation list. DISCHARGE INSTRUCTIONS: Patient was discharged to the long term facility. Follow up with medical doctor at the facility. I have been assigned to dictate discharge summary for this account. I was not involved in the patient's management. Radha Estrada NP Jun 05, 2018 13:48
--- NOTE | 2018-06-06 00:58 | Cardiology Report ---
APPROVED REPORT EKG Measurement Heart [id number] ID [id number] Normal sinus rhythm Low voltage QRS Cannot rule out Inferior infarct, age undetermined Cannot rule out Anterior infarct, age undetermined Abnormal ECG
== END 2018-06-03 18:35 | DRG 603 ==
LOC: EDBD 10:00 → EMR 10:25 → 4W 10:45 → EDBEDREQ 11:47 → 4W 16:17
DX: L03.116 Cellulitis of left lower limb (principal); N39.0 Urinary tract infection, site not specified; Z68.43 Body mass index [BMI] 50.0-59.9, adult; E87.2 Acidosis; L03.115 Cellulitis of right lower limb; E87.6 Hypokalemia; E11.65 Type 2 diabetes mellitus with hyperglycemia; E66.01 Morbid (severe) obesity due to excess calories; N31.9 Neuromuscular dysfunction of bladder, unspecified; B96.20 Unspecified Escherichia coli [E. coli] as the cause of diseases classified elsewhere; R00.0 Tachycardia, unspecified; Z87.440 Personal history of urinary (tract) infections
CPT/HCPCS: 36415; 71045; 80048; 80053; 80202; 81003; 82962; 83036; 83605; 83880; 84443; 84484; 85025; 87086; 87181; 93005; 99285; J1815; J2405; J8499; S5561